=== PATIENT | male | born 1955 | race Caucasian/White ===

== ENCOUNTER 2024-09-21 19:00 | Emergency (ER) | payer OTHER ==
[~2024-09-21] VITALS: Ht 172.7 cm; Wt 93.4 kg
[2024-09-21] MEDS: ketOROlac 15MG/ML VIAL (15MG/ML) IM STA (20:11)
[2024-09-21] MEDS: ORPHENADRINE 60MG/2ML IM STA (20:12)
--- NOTE | 2024-09-21 20:14 | HMCIMG ---
RIGHT SHOULDER RADIOGRAPHS - 2-3 VIEWS INDICATION: Pain COMPARISON: None FINDINGS: No fracture or dislocation identified. Acromioclavicular and glenohumeral alignments are well maintained. Visible portions of the right clavicle are intact. IMPRESSION: No evidence for fracture or dislocation.
--- NOTE | 2024-09-21 20:14 | HMCIMG ---
CERVICAL SPINE RADIOGRAPHS - 2-3 VIEWS INDICATION: Pain COMPARISON: None FINDINGS: AP, lateral, and odontoid views. Straightening of the normal lordosis may be related to overlying muscle spasm, underlying degenerative joint disease and/or patient positioning. Multilevel mild to moderate disc height loss at multiple levels along the cervical spine. No acute fracture or malalignment identified. Prevertebral soft tissues are not swollen. The atlanto-dens interval is within normal limits for patient's age. Spot view of the odontoid is without evidence for fracture. Vertebral body heights are within normal limits. Disc heights are well preserved Visible lung apices are clear. IMPRESSION: No acute fracture or subluxation identified.
--- NOTE | 2024-09-21 20:16 | HMCIMG ---
RIGHT RIBS/CHEST RADIOGRAPHS - 6 VIEWS INDICATION: Right rib pain COMPARISON: None FINDINGS: Heart size is normal. Lungs are clear. No evidence for pneumothorax or pleural effusion. No evidence for pulmonary parenchymal contusion. No rib fracture identified. No intrinsic osseous abnormality detected. Mild to moderate thoracolumbar spondylosis. IMPRESSION: 1. No rib fracture identified. 2. No radiographic evidence for any acute cardiopulmonary process.
--- NOTE | 2024-09-21 20:23 | ERN ---
ED Note History of Present Illness Stated Complaint: FALL Chief Complaint: Mechanical Fall Time Seen by MD: 19:18 Time Seen by Midlevel: 19:20 Dictation: 69-year-old male with no significant past medical history coming in status post fall. Patient states he missed two steps hit his right shoulder and right ribs on the last step. Complaining of right rib pain, right shoulder pain, and neck pain. Denies any LOC, denies any blood thinners. Denies any head injury. Allergies: Coded Allergies: Penicillins (Unverified Allergy, Unknown, 09/21/24) Sulfa (Sulfonamide Antibiotics) (Unverified Allergy, Unknown, 09/21/24) Past Medical History Past Medical History: High Cholesterol, Hypertension Surgical History: Cholecystectomy, Bariatric Surgery Review of System Dictation Constitutional: Negative for fever,chills, and weight loss Eyes: Negative for injury, pain,redness, and discharge ENT: Negative for injury,pain or swelling Cardiovascular: Negative for chest pain, palpitations, and edema Respiratory: Negative for shortness of breath, cough, and wheezing, Abdomen/GI: Negative for abdominal pain, nausea, vomiting, diarrhea, and constipation Back: Negative for injury and pain : Negative for injury, bleeding and discharge MS/Extremity: Negative for injury and deformity, complaining of right shoulder, right rib pain and neck pain Skin: Negative for rash, and discoloration Neuro: Negative for headache, weakness, numbness, tingling, and seizure Psych: Negative for suicide ideation, homicidal ideation, and hallucinations Review of Systems: was completed Initial Vital Sign VS Vital Signs Date Time Temp Pulse Resp B/P (MAP) Pulse Ox O2 Delivery O2 Flow Rate FiO2 09/21/24 19:14 97.9 57 16 140/75 97 Room Air 09/21/24 19:50 0 21 Physical Exam Dictation General: awake, alert, NAD Head/Face: Normocephalic, atraumatic Eyes: PERRL, EOMI, vision at baseline ENT: oral cavity clear, TMs clear, no signs of infection Neck: Trachea midline, supple, no nuchal rigidity Cardiovascular: RRR, normal S1/S2, No MRGs, no JVD, superficial abrasion noted on the right ribs Respiratory: CTAB, no respiratory distress, No rales or wheezes Abdomen: Soft, non-tender, non-distended, normal bowel sounds, no guarding or rebound. Skin: Warm, dry, normal turgor, no rash MS/Extremity: Pulses equal, no cyanosis, neurovascular intact, FROM Neuro: COAx4, GCS 15, strength 5/5, CN 2-12 intact, normal cerebellar exam, normal gait, Psych: Normal behavior, mood, and affect normal Results (Laboratory/Radiology) Labs Reviewed?: Yes X-RAY Comment: [place] [id number] [id number] IMAGING REPORT Signed PATIENT: TIFFANIE YOUNG MR#: [id number] : 1955 SEX: M AGE: 69 LOCATION: ED ORDER 34 STATUS: REG ER [facility] REPORT#: [id number] SERVICE 33 REASON: fall ORDERING PHYSICIAN: RAINA FREEMAN NP PROCEDURE: CERV 2 3VW - CERV SPINE 2-3VWS CERVICAL SPINE RADIOGRAPHS - 2-3 VIEWS INDICATION: Pain COMPARISON: None FINDINGS: AP, lateral, and odontoid views. Straightening of the normal lordosis may be related to overlying muscle spasm, underlying degenerative joint disease and/or patient positioning. Multilevel mild to moderate disc height loss at multiple levels along the cervical spine. No acute fracture or malalignment identified. Prevertebral soft tissues are not swollen. The atlanto-dens interval is within normal limits for patient's age. Spot view of the odontoid is without evidence for fracture. Vertebral body heights are within normal limits. Disc heights are well preserved Visible lung apices are clear. IMPRESSION: No acute fracture or subluxation identified. DICTATED BY: DAISY MAR MD DATE: 09/21/242008 ELECTRONICALLY SIGNED BY: DAISY MAR MD DATE: 09/21/242013 [facility] [id number] [address] IMAGING REPORT Signed PATIENT: TIFAFNIE YOUNG MR#: [id number] : 1955 SEX: M AGE: 69 LOCATION: EDH ORDER 34 STATUS: REG ER [facility] REPORT#: [id number] SERVICE 33 REASON: fall ORDERING PHYSICIAN: RAINA FREEMAN NP PROCEDURE: RIB RT W C - RIBS UNI RT W PA CHEST 3+ VWS RIGHT RIBS/CHEST RADIOGRAPHS - 6 VIEWS INDICATION: Right rib pain COMPARISON: None FINDINGS: Heart size is normal. Lungs are clear. No evidence for pneumothorax or pleural effusion. No evidence for pulmonary parenchymal contusion. No rib fracture identified. No intrinsic osseous abnormality detected. Mild to moderate thoracolumbar spondylosis. IMPRESSION: 1. No rib fracture identified. 2. No radiographic evidence for any acute cardiopulmonary process. DICTATED BY: DAISY MAR MD DATE: 09/21/242010 ELECTRONICALLY SIGNED BY: DAISY MAR MD DATE: 09/21/242015 [place] [id number] IMAGING REPORT Signed PATIENT: TIFFANIE YOUNG MR#: [id number] : 1955 SEX: M AGE: 69 LOCATION: EDH ORDER 34 STATUS: [facility] REPORT#: [id number] SERVICE 33 REASON: fall ORDERING PHYSICIAN: RAINA FREEMAN NP PROCEDURE: RIB RT W C - RIBS UNI RT W PA CHEST 3+ VWS RIGHT RIBS/CHEST RADIOGRAPHS - 6 VIEWS INDICATION: Right rib pain COMPARISON: None FINDINGS: Heart size is normal. Lungs are clear. No evidence for pneumothorax or pleural effusion. No evidence for pulmonary parenchymal contusion. No rib fracture identified. No intrinsic osseous abnormality detected. Mild to moderate thoracolumbar spondylosis. IMPRESSION: 1. No rib fracture identified. 2. No radiographic evidence for any acute cardiopulmonary process. DICTATED BY: DAISY MAR MD DATE: 09/21/242010 ELECTRONICALLY SIGNED BY: DAISY MAR MD DATE: 09/21/242015 ED Course ED Course Orders Procedure Category Date Status Time Shoulder Comp 2+Vws Rt RAD 09/21/24 Resulted 19:34 Ribs Uni Rt W Pa RAD 09/21/24 Resulted Chest 3+ Vws 19:34 Cerv Spine 2-3vws RAD 09/21/24 Resulted 19:34 Orphenadrine Citrate PHA 09/21/24 Complete (Norflex) 19:35 Ketorolac PHA 09/21/24 Complete Tromethamine 15mg/Ml 19:35 Current Medications Medications (Trade) Dose Ordered Sig/Eloina Route PRN Reason Start Time Stop Time Status Last Admin Dose Admin Ketorolac Tromethamine (toRADol) 15 mg ONCE STAT IM 09/21/24 19:35 09/21/24 19:41 DC 09/21/24 20:11 Orphenadrine Citrate (Norflex) 60 mg ONCE STAT IM 09/21/24 19:35 09/21/24 19:41 DC 09/21/24 20:12 Vital Signs Date Time Temp Pulse Resp B/P (MAP) Pulse Ox O2 Delivery O2 Flow Rate FiO2 09/21/24 19:50 98.2 57 19 106/57 98 Room Air* 0 21 09/21/24 19:14 97.9 57 16 140/75 97 Room Air Medical Decision Making MDM MDM: 69-year-old male with no significant past medical history coming in status post fall. Patient states he missed two steps hit his right shoulder and right ribs on the last step. Complaining of right rib pain, right shoulder pain, and neck pain. Denies any LOC, denies any blood thinners. Denies any head injury. X-rays of the ribs, shoulder and neck showed no acute findings. Discussed findings with the patient. Educated she needs to follow up with PCP in 1-2 days. We will give prescription for muscle spasm and educated patient he can add Tylenol or Motrin in conjunction with the his medication. Patient verbalized understanding, answered all questions. Differential diagnosis: Rib fracture, rib contusion, shoulder dislocation, shoulder contusion Rationale: Tests considered and ordered secondary to shared decision making include: Previous outside records reviewed: Old ER visits. Risk of complication and/or morbidity or mortality of patient management: None Medications-Per medication reconciliation Need for hospitalization: Patient does not meet criteria for hospitalization. Need for emergency major/minor surgery: No There are no social concerns with this patient. Prescription drug management Prescriptions will include symptomatic care Patient's prior external medical records from other ER visits were reviewed by me as indicated. Prior testing and results from previous visits were reviewed. Prior tests were taken into account with medical decision making and resource utilization, independent historian/historians were used to obtain complete medical history. I independently interpreted the test that were performed, results were reviewed by me and considered findings on radiology if ordered. Medical management and examination interpretation discussions were had by me with other qualified healthcare professionals as indicated for the patient's care. DX & DISP Disposition: Discharge Departure Impression: Primary Impression: Fall Additional Impressions: Contusion of rib on right side, Shoulder contusion Condition: Stable Scripts Methocarbamol (Methocarbamol) 500 Mg Tablet 1 TAB PO TID for 30 Days, #90 TAB 0 Refills Prov: RAINA FREEMAN NP 09/21/24 Additional Instructions: Your x-rays are normal. You can take Tylenol or Motrin over the in conjunction with your muscle relaxer. Follow up with your primary doctor in 1-2 days and return to the hospital if you have any worsening symptoms. Referrals: JAJA OLVE (PCP) Time of Disposition: 20:29 I have reviewed the case, and I agree with, Diagnosis and Plan RAINA FREEMAN NP Sep 21, 2024 20:23
[2024-09-21] MEDS ORDERED: METH-811 PO (20:29)
[2024-09-21 20:41] VITALS: BP 109/64; PULSE 62; RESP 19; TEMP 98.2; O2SAT 98
== END 2024-09-21 20:42 | disposition home or self-care (01) ==
LOC: EDH 19:00
DX: S20.211A Contusion of right front wall of thorax, initial encounter (principal); S40.011A Contusion of right shoulder, initial encounter; E78.00 Pure hypercholesterolemia, unspecified; I10 Essential (primary) hypertension; Z88.0 Allergy status to penicillin; Z88.2 Allergy status to sulfonamides; Z90.49 Acquired absence of other specified parts of digestive tract; W18.39XA Other fall on same level, initial encounter; Y93.89 Activity, other specified; Y92.89 Other specified places as the place of occurrence of the external cause; Y99.8 Other external cause status
CPT/HCPCS: 99284; 72040; 73030; 71101; 96372 ×2; J1885; J2360